=== PATIENT | male | born 1985 | race Caucasian/White ===

== ENCOUNTER 2021-03-24 10:37 | Emergency (ER) | payer OTHER ==
[~2021-03-24] VITALS: Ht 177.8 cm; Wt 117.8 kg
[2021-03-24 10:50] VITALS: BP 150/84
[2021-03-24] MEDS ORDERED: IBUPROFEN 600 MG TABLET ONE (11:29)
[2021-03-24] MEDS ORDERED: IBUPROFEN 600 MG TABLET PO ONE (11:30)
== END 2021-03-24 13:03 | disposition home or self-care (01) ==
LOC: ED 12:38
DX: M25.462 Effusion, left knee (principal); M25.362 Other instability, left knee; X50.0XXA Overexertion from strenuous movement or load, initial encounter; Y93.89 Activity, other specified; Y92.009 Unspecified place in unspecified non-institutional (private) residence as the place of occurrence of the external cause; Y99.8 Other external cause status
CPT/HCPCS: 29505; 99283